=== PATIENT | female | born 1970 | race Caucasian/White ===

== ENCOUNTER → 2017-07-02 | Outpatient (CLI) | payer SELFPAY | LOC: YCFC.O 16:19 | PROVIDERS: ATTEND Nurse Practitioner Family | DX: I10 Essential (primary) hypertension (principal); E11.9 Type 2 diabetes mellitus without complications ==

== ENCOUNTER → 2018-02-20 | Outpatient (CLI) | payer MEDICAID ==
--- NOTE | 2018-02-20 20:02 | NM ---
EXAM DESCRIPTION: Bone Scan, Whole Body CLINICAL HISTORY: MALIGNANT NEOPLASM OF LEFT BREAST COMPARISON: None available TECHNIQUE: Following intravenous administration of 26.4 mCi technetium 99m MDP, whole body and spot scintigraphic imaging was performed. FINDINGS: Skull: Unremarkable. Spine:Degenerative uptake. No osteoblastic lesions. Thorax: Physiologic radiotracer activity demonstrated in the bilateral ribs and sternum. No osteoblastic metastatic lesions. Abdomen pelvis: Urinary activity demonstrated within the bilateral kidneys and urinary bladder. No osteoblastic metastatic disease. Extremities:Degenerative uptake within the bilateral shoulders. No osteoblastic metastatic lesions. Soft tissue: Normal distribution of radiopharmaceutical. IMPRESSION: No scintigraphic evidence for osteoblastic metastatic disease. Electronically signed by: Arvin Clemons MD 02/20/2018 8:00 PM CDT Workstation: [id number]
== END ==
LOC: NM 08:54
PROVIDERS: ATTEND Internal Medicine Hematology & Oncology
DX: C50.412 Malignant neoplasm of upper-outer quadrant of left female breast (principal); M89.9 Disorder of bone, unspecified

== ENCOUNTER 2018-08-13 13:08 | Emergency (ER) | payer MEDICAID | END 2018-08-13 13:52 | disposition left against medical advice (07) | LOC: ER 13:08 | DX: K92.1 Melena (principal); Z53.21 Procedure and treatment not carried out due to patient leaving prior to being seen by health care provider ==

== ENCOUNTER → 2018-10-27 | Outpatient (CLI) | payer OTHER | LOC: LAB.O 09:25 | PROVIDERS: ATTEND Nurse Practitioner Family | DX: D72.828 Other elevated white blood cell count (principal) ==

== ENCOUNTER → 2018-10-30 | Outpatient (CLI) | payer OTHER | LOC: LAB.O 09:11 | PROVIDERS: ATTEND Nurse Practitioner Family | DX: D72.828 Other elevated white blood cell count (principal) ==

== ENCOUNTER → 2019-02-24 | Outpatient (CLI) | payer OTHER ==
--- NOTE | 2019-02-24 20:57 | US ---
EXAM DESCRIPTION: Liver: ULTRASOUND. CLINICAL HISTORY: ELEVATED LFT's COMPARISON: CT scan abdomen February 16 2019. TECHNIQUE: Transabdominal scannin-dimensional and Doppler modes. FINDINGS: Gallbladder: normal size, shape, echogenicity; no intraluminal stones or sludge. No fluid around the gallbladder. No wall thickening. 2.4 mm. Non-tender with transducer pressure. Common bile duct: caliber 3.6 mm within normal limits. Liver: normal echogenicity; contour liver capsule smooth where seen. No fluid around the liver. Intrahepatic biliary ducts normal caliber. Doppler hepatopedal flow portal vein. 1.6 cm diameter. Long axis right lobe 18.0 cm Pancreas: normal size and echogenicity. Duct not seen. Right kidney: long axis measures 7.6 cm. Normal echogenicity. Normal cortical thickness. No hydronephrosis IMPRESSION: 1. Steatosis of the liver and mild enlargement with normal ducts and normal flow in the portal vein. Smooth capsule no ascites. 2. Ultrasound of the gallbladder, common bile duct, pancreas, right kidney, and soft tissues is unremarkable. Electronically signed by: Stanley Bland MD 02/24/2019 8:54 PM CDT
== END ==
LOC: US 11:00
PROVIDERS: ATTEND Internal Medicine Hematology & Oncology
DX: C50.412 Malignant neoplasm of upper-outer quadrant of left female breast (principal); K76.0 Fatty (change of) liver, not elsewhere classified

== ENCOUNTER → 2019-10-05 | Outpatient (CLI) | payer OTHER ==
--- NOTE | 2019-10-05 16:11 | NM ---
EXAM DESCRIPTION: Bone Scan, Whole Body: Nuclear Medicine CLINICAL HISTORY: 49 years Female MALIGNANT NEOPLASM OF UPPER OUTER QUADRANT OF LEFT BREAST COMPARISON: Radionuclide bone imaging of the whole body 20 February 2018. TECHNIQUE: Patient injected with 25.4 mCi of technetium 99M MDP IV. Delayed gamma camera images from various planes were obtained 3 hr after injection. FINDINGS: Skull: Unremarkable. Spine: Degenerative uptake. No osteoblastic lesions. Thorax: Increased activity in the right sternoclavicular joint is most likely degenerative. No abnormal osteoblastic activity elsewhere in the thorax. Abdomen and pelvis: Normal soft tissue urinary activity in the kidneys and urinary bladder. No osteoblastic activity. Extremities: Degenerative activity in the bilateral shoulders elbows and left wrist. Also minimal degenerative activity bilateral ankles. No osteoblastic activity. Soft tissue: Normal distribution of radiopharmaceutical. IMPRESSION: No radionuclide bone scan evidence of metastatic osteoblastic lesions. Degenerative activity present. Stable since the prior study. Electronically signed by: Stanley Bland MD 10/05/2019 4:10 PM [employer]
== END ==
LOC: NM 09:45
PROVIDERS: ATTEND Internal Medicine Hematology & Oncology
DX: C50.412 Malignant neoplasm of upper-outer quadrant of left female breast (principal); M85.80 Other specified disorders of bone density and structure, unspecified site